=== PATIENT | male | born 1955 | race Caucasian/White ===

== ENCOUNTER 2019-07-17 08:08 | Emergency (ER) | payer OTHER ==
[~2019-07-17] VITALS: Ht 160 cm; Wt 61.2 kg
[~2019-07-17 08:08] MED LIST: HUMALOG100 U/ML SC; LANTUS100 U/ML SC; METFORMIN500 M1 PO; NEU100 PO; [UNRECOGNIZED DRUG - OTHER] PO
[2019-07-17 08:19] VITALS: BP 149/79; Ht 160 cm; Wt 61.2 kg
[2019-07-17 09:48] LABS: CARBON DIOXIDE 28.3 mmol/L (21-32); CHLORIDE SERUM 101 mmol/L (98-107); POTASSIUM SERUM 4.4 mmol/L (3.5-5.1); SODIUM SERUM 134 mmol/L (136-145)
[2019-07-17 09:49] LABS: ALKALINE PHOSPHATASE 163 U/L (46-116); ALT/SGPT 38 U/L (16-63); AST/SGOT 20 U/L (15-37); BILIRUBIN TOTAL 0.2 mg/dL (0.20-1.00); CALCIUM 8.7 mg/dL (8.5-10.1); CREATININE SERUM 1.1 mg/dL (0.7-1.3); GFR1 > 60 mL/min; GLUCOSE SERUM 394 mg/dL (74-106); LIPASE 169 IU/L (73-393); TOTAL PROTEIN, SERUM 6.7 g/dL (6.4-8.2)
[2019-07-17 10:06] LABS: BASOPHIL % 0.2 % (0-2); PLATELET COUNT 287 x10^3mcL (130-400)
[2019-07-17 10:07] LABS: RED CELL DISTRIBUTION WIDTH 14.6 % (11.5-14.5)
== END 2019-07-17 10:52 | disposition home or self-care (01) ==
LOC: ED 08:08
PROVIDERS: Emergency Medicine
DX: N20.0 Calculus of kidney (principal); I10 Essential (primary) hypertension; E11.9 Type 2 diabetes mellitus without complications; Z86.19 Personal history of other infectious and parasitic diseases
CPT/HCPCS: J0561; J1885; J2405; J7030

== ENCOUNTER 2019-09-17 18:55 | Inpatient (IN) | payer OTHER ==
[~2019-09-17] VITALS: Ht 162.6 cm; Wt 61.2 kg
[2019-09-17 18:58] VITALS: Ht 162.6 cm; Wt 61.2 kg
[2019-09-17 19:47] LABS: BASOPHIL % 0.3 % (0-2); PLATELET COUNT 319 x10^3mcL (130-400); RED CELL DISTRIBUTION WIDTH 14.7 % (11.5-14.5)
[2019-09-17 19:58] LABS: CALCIUM 8.6 mg/dL (8.5-10.1); CARBON DIOXIDE 30.5 mmol/L (21-32); CHLORIDE SERUM 102 mmol/L (98-107); CREATININE SERUM 1.2 mg/dL (0.7-1.3); GFR1 > 60 mL/min; GLUCOSE SERUM 313 mg/dL (74-106); POTASSIUM SERUM 4.3 mmol/L (3.5-5.1); SODIUM SERUM 139 mmol/L (136-145)
[2019-09-17 20:01] LABS: microscopic required? YES; urine erythrocyte 1+ (NEGATIVE)
[2019-09-17 20:03] LABS: ALBUMIN 3.3 g/dL (3.4-5.0); ALKALINE PHOSPHATASE 158 U/L (46-116); ALT/SGPT 37 U/L (16-63); AST/SGOT 21 U/L (15-37); BILIRUBIN TOTAL 0.1 mg/dL (0.20-1.00); TOTAL PROTEIN, SERUM 7.4 g/dL (6.4-8.2)
[2019-09-17] MEDS ORDERED: ACETAMIN W/ COD1 TAB PO (20:50)
[2019-09-17] MEDS ORDERED: NATURE'S BLEND F1 MG PO (20:50)
[2019-09-17] MEDS ORDERED: CARDURA2 MG PO (20:51)
[2019-09-17] MEDS ORDERED: FLOMAX0.4 MG PO (20:51)
[2019-09-17] MEDS ORDERED: CLARITIN LIQUI-10 MG PO (20:52)
[2019-09-17] MEDS ORDERED: ULTRAM50 MG PO (20:52)
[2019-09-17] MEDS ORDERED: METFORMIN HCL1000 M2 PO (20:52)
[2019-09-17] MEDS ORDERED: NAPROSYN500 MG PO (20:53)
[2019-09-17] MEDS ORDERED: MAGNESIUM400 MG PO (20:53)
[2019-09-17] MEDS ORDERED: REGLAN10 M1 PO (20:53)
[2019-09-17] MEDS ORDERED: NEURONTIN300 MG PO (20:54)
[2019-09-17] MEDS ORDERED: LIPITOR20 MG PO (20:54)
[2019-09-17] MEDS ORDERED: ASPIRIN FOR CHI81 M1 PO (20:54)
[2019-09-17] MEDS ORDERED: LISINOPRIL-HYDR1 TA3 PO (20:55)
[2019-09-17] MEDS ORDERED: NESINA25 MG PO (20:55)
[2019-09-17 22:15] LABS: CHOLESTEROL/HDL RATIO 3.3
[2019-09-17 22:18] LABS: T3 TOTAL 1.23 ng/mL
[2019-09-17 22:19] LABS: FREE T4 1.25 ng/dL (0.76-1.46); FREE THYROXINE INDEX 3.5 ug/dL (1.4-4.5)
[2019-09-17 23:30] VITALS: BP 158/115
[2019-09-18 06:49] VITALS: BP 137/54
[2019-09-18 06:49] LABS: BASOPHIL % 0.2 % (0-2); PLATELET COUNT 282 x10^3mcL (130-400); RED CELL DISTRIBUTION WIDTH 14.3 % (11.5-14.5)
[2019-09-18 07:22] LABS: CALCIUM 7.8 mg/dL (8.5-10.1); CARBON DIOXIDE 26.5 mmol/L (21-32); CHLORIDE SERUM 108 mmol/L (98-107); CREATININE SERUM 1.1 mg/dL (0.7-1.3); GFR1 > 60 mL/min; GLUCOSE SERUM 115 mg/dL (74-106); MAGNESIUM 1.7 mg/dL (1.8-2.4); PHOSPHOROUS 3.6 mg/dL (2.5-4.9); POTASSIUM SERUM 3.8 mmol/L (3.5-5.1); SODIUM SERUM 142 mmol/L (136-145)
[2019-09-18 07:30] VITALS: BP 140/55
[2019-09-18 13:25] LABS: AMPHETAMINE QUAL UR NONE DETECTED (See below)
[2019-09-18 21:00] VITALS: BP 137/60
[2019-09-19 06:00] VITALS: BP 132/56
[2019-09-19 07:31] LABS: BASOPHIL % 0.4 % (0-2); PLATELET COUNT 272 x10^3mcL (130-400); RED CELL DISTRIBUTION WIDTH 14.5 % (11.5-14.5)
[2019-09-19 08:25] VITALS: BP 131/51
[2019-09-19 08:55] LABS: CALCIUM 8.1 mg/dL (8.5-10.1); CARBON DIOXIDE 24.6 mmol/L (21-32); CHLORIDE SERUM 106 mmol/L (98-107); GFR1 > 60 mL/min; GLUCOSE SERUM 177 mg/dL (74-106); PHOSPHOROUS 4.2 mg/dL (2.5-4.9); POTASSIUM SERUM 4.4 mmol/L (3.5-5.1); SODIUM SERUM 138 mmol/L (136-145)
[2019-09-19 11:25] VITALS: BP 142/39
[2019-09-19 17:45] VITALS: BP 155/69
[2019-09-19 20:13] VITALS: BP 133/56
[2019-09-20 06:41] LABS: BASOPHIL % 0.2 % (0-2); PLATELET COUNT 330 x10^3mcL (130-400)
[2019-09-20 06:57] LABS: CALCIUM 8.8 mg/dL (8.5-10.1); CHLORIDE SERUM 106 mmol/L (98-107); CREATININE SERUM 1.1 mg/dL (0.7-1.3); GFR1 > 60 mL/min; GLUCOSE SERUM 100 mg/dL (74-106); POTASSIUM SERUM 4.5 mmol/L (3.5-5.1); SODIUM SERUM 142 mmol/L (136-145)
[2019-09-20 07:11] LABS: RED CELL DISTRIBUTION WIDTH 14.7 % (11.5-14.5)
[2019-09-20 08:00] VITALS: BP 158/72
[2019-09-20 17:59] VITALS: BP 138/64
[2019-09-20 21:23] VITALS: BP 116/55
[2019-09-21 05:29] VITALS: BP 116/63
[2019-09-21 08:45] VITALS: BP 135/60
[2019-09-21] MEDS ORDERED: MACROBID100 MG PO (10:16)
[2019-09-21 10:43] VITALS: BP 135/60
[2019-09-21 14:30] VITALS: BP 130/59
== END 2019-09-21 15:59 | disposition home or self-care (01) | DRG 690 ==
LOC: ED 18:55 → DU 21:03
PROVIDERS: Emergency Medicine; ADMIT Internal Medicine
DX: N39.0 Urinary tract infection, site not specified (principal); E11.65 Type 2 diabetes mellitus with hyperglycemia; I10 Essential (primary) hypertension; B96.20 Unspecified Escherichia coli [E. coli] as the cause of diseases classified elsewhere; I44.1 Atrioventricular block, second degree; F17.210 Nicotine dependence, cigarettes, uncomplicated; E78.5 Hyperlipidemia, unspecified; Z79.4 Long term (current) use of insulin; Z68.23 Body mass index [BMI] 23.0-23.9, adult; Z79.84 Long term (current) use of oral hypoglycemic drugs; Z87.440 Personal history of urinary (tract) infections; Z87.442 Personal history of urinary calculi; Z79.82 Long term (current) use of aspirin; Z79.899 Other long term (current) drug therapy
CPT/HCPCS: 82962; 84439; G0378; J0696; J1815; J1956; J2185; J7030; J7042; J7060; Q0092; U0002

== ENCOUNTER 2020-07-04 10:36 | Emergency (ER) | payer OTHER ==
[~2020-07-04] VITALS: Ht 162.6 cm; Wt 68.9 kg
[~2020-07-04 10:36] MED LIST changes: +ACETAMIN W/ COD1 TAB PO; +ASPIRIN FOR CHI81 M1 PO; +CARDURA2 MG PO; +CLARITIN LIQUI-10 MG PO; +FLOMAX0.4 MG PO; +LIPITOR20 MG PO; +LISINOPRIL-HYDR1 TA3 PO; +MACROBID100 MG PO; +MAGNESIUM400 MG PO; +METFORMIN HCL1000 M2 PO; +NAPROSYN500 MG PO; +NATURE'S BLEND F1 MG PO; +NESINA25 MG PO; +NEURONTIN300 MG PO; +REGLAN10 M1 PO; +ULTRAM50 MG PO
[2020-07-04 10:40] VITALS: Ht 162.6 cm; Wt 68.9 kg
[2020-07-04 15:57] LABS: BASOPHIL % 0.5 % (0.2-1.5); PLATELET COUNT 395 x10^3mcL (152-348); RED CELL DISTRIBUTION WIDTH 14.5 % (12.1-16.2)
[2020-07-04 16:21] LABS: CALCIUM 9.2 mg/dL (8.5-10.1); CARBON DIOXIDE 25.9 mmol/L (21-32); CREATININE SERUM 2.1 mg/dL (0.7-1.3); POTASSIUM SERUM 4.5 mmol/L (3.5-5.1)
[2020-07-04 16:25] LABS: ALBUMIN 4.5 g/dL (3.4-5.0); BILIRUBIN TOTAL 0.4 mg/dL (0.20-1.00); TOTAL PROTEIN, SERUM 8.4 g/dL (6.4-8.2)
[2020-07-04 17:04] VITALS: BP 172/83
== END 2020-07-04 17:04 | disposition home or self-care (01) ==
LOC: ED 10:36
PROVIDERS: Emergency Medicine
DX: U07.1 COVID-19 (principal); N39.0 Urinary tract infection, site not specified; R07.89 Other chest pain; I10 Essential (primary) hypertension; E11.9 Type 2 diabetes mellitus without complications

== ENCOUNTER 2020-07-24 11:04 | Emergency (ER) | payer OTHER ==
[~2020-07-24] VITALS: Ht 162.6 cm; Wt 74.4 kg
[2020-07-24 11:26] VITALS: BP 182/71; Ht 162.6 cm; Wt 74.4 kg
[2020-07-24 12:32] LABS: UA SPECIFIC GRAVITY 1.015 (1.005-1.035); microscopic required? YES; urine erythrocyte 1+ (NEGATIVE)
== END 2020-07-24 13:00 | disposition home or self-care (01) ==
LOC: ED 11:04
PROVIDERS: Emergency Medicine
DX: N39.0 Urinary tract infection, site not specified (principal); E11.9 Type 2 diabetes mellitus without complications; I10 Essential (primary) hypertension